=== PATIENT | female | born 1950 | race Caucasian/White ===

== ENCOUNTER 2016-05-07 22:33 | Emergency (ER) | payer MEDICARE ==
[2016-05-07 23:06] LABS: BASOPHIL 1.1 % (0-2); EOSINOPHIL 8.9 % (0-7); HCT 34.5 % (37.0-47.0); HGB 12.6 g/dl (12.5-16.0); LYMPHOCYTE 41.9 % (15-48); MCH 33.3 pg (25.0-31.0); MCHC 36.5 g/dL (32.0-36.0); MCV 91.3 fL (78.0-100.0); MONOCYTE 7.4 % (0-12); MPV 8.1 fL (6.0-9.5); NEUTROPHIL 40.7 % (41-80); PLT 356 K/uL (150-400); RBC 3.78 M/uL (4.20-5.40); RDW 12.5 % (11.5-14.0); WBC 7.6 K/uL (4.0-10.5)
[2016-05-07 23:17] LABS: INR 0.89 (0.9-1.2); PROTHROMBIN TIME 11.7 SECONDS (11.7-14.0); PTT 28.7 SECONDS (23.2-31.4)
[2016-05-07 23:24] LABS: ALBUMIN 4.5 g/dL (3.4-4.8); BILIRUBIN - TOTAL 0.4 mg/dL (0.1-1.0); CREATININE 0.8 mg/dL (0.5-1.0); GLOBULIN (CALCULATION) 2.2 g/dL (2.2-4.2); MAGNESIUM 2.11 mg/dL (1.40-2.10); POTASSIUM 3.8 mmol/L (3.5-5.1); TOTAL PROTEIN 6.7 g/dL (6.4-8.3)
[2016-05-07 23:26] LABS: CKMB 2.52 ng/mL (0.97-4.94); MYOGLOBIN 28 ng/mL (26-65); PRO-BNP 64 pg/mL (0-125); TROPONIN T < 0.010 ng/mL
[2016-10-18] MEDS ORDERED: METRONIDAZOLE500 MG PO (13:01)
[2016-10-18] MEDS ORDERED: PRAVACHOL80 MG PO (13:02)
[2016-10-18] MEDS ORDERED: KLONOPIN0.5 MG PO (13:02)
[2016-10-18] MEDS ORDERED: OMEPRAZOLE40 MG PO (13:02)
[2016-10-18] MEDS ORDERED: CYMBALTA60 MG PO (13:02)
[2016-10-18] MEDS ORDERED: SYNTHROID 0.1M0.1 MG PO (13:02)
[2016-10-18] MEDS ORDERED: ASPIRIN CHEWABL81 MG PO (13:03)
[2016-10-18] MEDS ORDERED: LAMICTAL150 MG PO (13:03)
[2016-10-18] MEDS ORDERED: SEROQUEL XR400 MG PO (13:03)
[2016-10-18] MEDS ORDERED: B COMPLEX1 EACH PO (13:04)
[2016-10-18] MEDS ORDERED: BRILINTA90 MG PO (13:04)
[2016-10-18] MEDS ORDERED: COENZYME Q10100 M1 PO (13:04)
[2016-10-18] MEDS ORDERED: CERTAGEN1 EACH PO (13:04)
[2016-10-18] MEDS ORDERED: L-METHYLFOLATE PO (13:05)
[2016-10-18] MEDS ORDERED: ABILIFY5 MG PO (13:06)
[2016-10-18] MEDS ORDERED: BIO D MULSION FORTE (13:06)
== END 2016-05-08 02:12 | disposition home or self-care (01) ==
LOC: FER 22:33
PROVIDERS: Emergency Medicine
DX: R07.89 Other chest pain (principal); R06.02 Shortness of breath; R11.0 Nausea; I10 Essential (primary) hypertension; Z88.0 Allergy status to penicillin; Z88.5 Allergy status to narcotic agent; Z88.8 Allergy status to other drugs, medicaments and biological substances; Z79.82 Long term (current) use of aspirin; Z79.899 Other long term (current) drug therapy; Z82.49 Family history of ischemic heart disease and other diseases of the circulatory system; Z98.890 Other specified postprocedural states
CPT/HCPCS: 36415; 71010; 80053; 82550; 82553; 83735; 83874; 83880; 84484; 85025; 85610; 85730; 93005; J2175; J2270; J2405

== ENCOUNTER 2020-02-28 15:38 | Inpatient (IN) | payer MEDICARE ==
[~2020-02-28 15:38] MED LIST: ABILIFY5 MG PO; ASPIRIN CHEWABL81 MG PO; ATROVENT (00.2 MG/ML INH; AVAPRO300 MG PO; B COMPLEX1 EACH PO; BIO D MULSION FORTE; BRILINTA60 MG PO; BRILINTA90 MG PO; CARDIZEM CD120 MG PO; CERTAGEN1 EACH PO; COENZYME Q10100 M1 PO; COQ-1030 MG PO; COREG12.5 MG PO; CRESTOR40 MG PO; CYMBALTA 30MG C30 MG PO; CYMBALTA60 MG PO; IMDUR 30MG TABL30 MG PO; ISOSORBIDE DINI10 MG PO; ISOSORBIDE MONO30 MG PO; KLONOPIN0.5 MG PO; KLONOPIN1 MG PO; L-METHYLFOLATE PO; L-METHYLFOLATE15 MG PO; LAMICTAL (BLUE)25 MG PO; LAMICTAL100 MG PO; LAMICTAL150 MG PO; MAG-OXIDE 400M400 MG PO; METRONIDAZOLE500 MG PO; NITROQUIK SL0.4 MG SL; OMEPRAZOLE40 MG PO; ONE-DAILY MULT1 EACH PO; PRAVACHOL80 MG PO; PRILOSEC20 MG PO; PRINIVIL20 MG PO; PROLIA60 MG/1 ML IJ; PROLIA60 MG/1 ML SC; REQUIP0.25 M1 PO; REQUIP0.25 MG PO; SEROQUEL 100MG100 MG PO; SEROQUEL XR400 MG PO; SERZONE100 MG PO; SYNTHROID 0.1M0.1 MG PO; SYNTHROID88 MCG PO; TOPROL XL 25MG25 MG PO; VENTOLIN (2.5 MG/3 M INH
[2020-02-28 17:18] LABS: BASOPHIL 0.7 % (0-2); EOSINOPHIL 1.5 % (0-7); HCT 33.1 % (37.0-47.0); HGB 11.5 g/dl (12.5-16.0); LYMPHOCYTE 16.6 % (15-48); MCH 32.6 pg (25.0-31.0); MCHC 34.7 g/dL (32.0-36.0); MCV 93.8 fL (78.0-100.0); MONOCYTE 6.7 % (0-12); MPV 8.3 fL (6.0-9.5); NEUTROPHIL 72.3 % (41-80); NRBC 0.6; PLT 418 K/uL (150-400); RBC 3.53 M/uL (4.20-5.40); RDW 13.7 % (11.5-14.0); WBC 10.7 K/uL (4.0-10.5)
[2020-02-28 17:23] LABS: INR 1.01 (0.9-1.2); PROTHROMBIN TIME 12.6 SECONDS (11.4-13.6)
[2020-02-28 17:25] LABS: D-DIMER 0.4 ug/mLFEU (0.00-0.41)
[2020-02-28 17:31] LABS: ALBUMIN 3.1 g/dL (3.4-5.0); BILIRUBIN - TOTAL 0.4 mg/dL (0.2-1.0); BUN/CREAT RATIO (CALC) 17.6 RATIO; CREATININE 0.68 mg/dL (0.51-0.95); GLOBULIN (CALCULATION) 4.2 g/dL; POTASSIUM 3.5 mmol/L (3.5-5.1); TOTAL PROTEIN 7.3 g/dL (6.4-8.2)
[2020-02-28 17:37] LABS: LACTIC ACID 1.4 mmol/L (0.4-1.9)
[2020-02-28] MEDS ORDERED: VITAMIN D3100 MCG PO (21:48)
[2020-02-28] MEDS ORDERED: NITROSTAT0.4 MG PO (21:49)
[2020-02-29 05:47] LABS: BASOPHIL 0.5 % (0-2); EOSINOPHIL 1.5 % (0-7); HCT 32.5 % (37.0-47.0); HGB 11.1 g/dl (12.5-16.0); MCH 32.6 pg (25.0-31.0); MCHC 34.2 g/dL (32.0-36.0); MCV 95.3 fL (78.0-100.0); MONOCYTE 9.9 % (0-12); MPV 8.2 fL (6.0-9.5); NEUTROPHIL 66.6 % (41-80); NRBC 0.6; PLT 412 K/uL (150-400); RBC 3.41 M/uL (4.20-5.40); RDW 13.8 % (11.5-14.0); WBC 12.4 K/uL (4.0-10.5)
[2020-02-29 06:11] LABS: ALBUMIN 2.8 g/dL (3.4-5.0); BILIRUBIN - TOTAL 0.3 mg/dL (0.2-1.0); BUN/CREAT RATIO (CALC) 17.1 RATIO; C-REACTIVE PROTEIN 4.8 mg/dL (<=0.90); CREATININE 0.82 mg/dL (0.51-0.95); GLOBULIN (CALCULATION) 4.8 g/dL; POTASSIUM 3.6 mmol/L (3.5-5.1); TOTAL PROTEIN 7.6 g/dL (6.4-8.2)
--- NOTE | 2020-02-29 13:24 | NUR ---
Patient triggered for nutrition assessment 2' BMI less than [address] screening found nursing error in assessment checked for low BMI. Patient ht'64", wt 184lb, BMI 31. patient currently on regular diet. No nutritional risks identified. Brit No RDLD
--- NOTE | 2020-02-29 17:09 | NUR ---
PT LIVES WITH BOYFRIEND; CURRENT WITH [facility]; HAS 3:1 ROLLING WALKER AND O2 AT HOME FROM LAST VISIT TO [facility]; PLEASE ADVISE OF ANY DISCHARGE NEEDS
--- NOTE | 2020-02-29 17:13 | NUR ---
02/29/2020 [facility] is current and were informed of patient's admission. Pt has 02, rw, and 3in1.
[2020-03-01 05:50] LABS: BASOPHIL 0.2 % (0-2); EOSINOPHIL 0 % (0-7); HCT 31.7 % (37.0-47.0); HGB 10.9 g/dl (12.5-16.0); LYMPHOCYTE 14.9 % (15-48); MCH 32.3 pg (25.0-31.0); MCHC 34.4 g/dL (32.0-36.0); MCV 94.1 fL (78.0-100.0); MPV 8.1 fL (6.0-9.5); NRBC 0.5; PLT 370 K/uL (150-400); RBC 3.37 M/uL (4.20-5.40); RDW 13.8 % (11.5-14.0); WBC 9.6 K/uL (4.0-10.5)
[2020-03-01 06:32] LABS: CREATININE 0.62 mg/dL (0.51-0.95); MAGNESIUM 2.2 mg/dL (1.8-2.4); PHOSPHORUS 2.6 mg/dL (2.6-4.7); POTASSIUM 3.5 mmol/L (3.5-5.1)
[2020-03-03] MEDS ORDERED: MEDROL 4MG DOSEP4 MG PO (13:43)
[2020-03-03] MEDS ORDERED: LEVAQUIN750 MG PO (13:43)
[2020-03-03] MEDS ORDERED: DUONEB 2.5-0.5M1 AMP NEB (13:56)
--- NOTE | 2020-03-03 14:23 | NUR ---
1420 IV DC'D. DISCHARGE ORDERS DISCUSSED WITH PT, SHE VERBALIZED UNDERSTANDING. PT TRANSPORTED TO HER OWN CAR WITH AND TECH IN A WHEELCHAIR. PT TOLERATED WELL, NO ISSUES AT THIS TIME.
== END 2020-03-03 14:15 | disposition home or self-care (01) | DRG 177 ==
LOC: FER 15:38 → FTCU 20:20
PROVIDERS: Emergency Medicine; Nurse Practitioner; ADMIT Internal Medicine
PROC: 8E0ZXY6 Isolation (ICD-10-PCS; principal; 2020-02-28)
DX: U07.1 COVID-19 (principal); J12.89 Other viral pneumonia; J96.01 Acute respiratory failure with hypoxia; J44.1 Chronic obstructive pulmonary disease with (acute) exacerbation; J44.0 Chronic obstructive pulmonary disease with (acute) lower respiratory infection; R49.0 Dysphonia; Z95.5 Presence of coronary angioplasty implant and graft; F31.9 Bipolar disorder, unspecified; I50.9 Heart failure, unspecified; I11.0 Hypertensive heart disease with heart failure; I25.10 Atherosclerotic heart disease of native coronary artery without angina pectoris; G47.33 Obstructive sleep apnea (adult) (pediatric); K21.9 Gastro-esophageal reflux disease without esophagitis; E03.9 Hypothyroidism, unspecified; Z86.73 Personal history of transient ischemic attack (TIA), and cerebral infarction without residual deficits; Z88.0 Allergy status to penicillin; Z95.1 Presence of aortocoronary bypass graft; Z90.49 Acquired absence of other specified parts of digestive tract; Z87.891 Personal history of nicotine dependence; Z88.8 Allergy status to other drugs, medicaments and biological substances
CPT/HCPCS: 36415; 36600; 71045; 71275; 80048; 80053; 80202; 82728; 82803; 83605; 83735; 83880; 84100; 84145; 84484; 85025; 85379; 85610; 86140; 87040; 93005; 94640; 94762; 97110; 97162; 97165; 97530; 97530-GP; J1885; J1956; J2930; J3370; J3480; J7050; Q9967; U0002

== ENCOUNTER 2021-01-21 11:58 | Emergency (ER) | payer MEDICARE ==
[~2021-01-21 11:58] MED LIST changes: +DUONEB 2.5-0.5M1 AMP NEB; +LEVAQUIN750 MG PO; +MEDROL 4MG DOSEP4 MG PO; +NITROSTAT0.4 MG PO; +VITAMIN D3100 MCG PO
[2021-01-21 12:32] LABS: BASOPHIL 0.8 % (0-2); HCT 32.2 % (37.0-47.0); HGB 11.4 g/dl (12.5-16.0); LYMPHOCYTE 31.9 % (15-48); MCH 33.3 pg (25.0-31.0); MCHC 35.4 g/dL (32.0-36.0); MCV 94.2 fL (78.0-100.0); MONOCYTE 4.7 % (0-12); MPV 8.4 fL (6.0-9.5); NEUTROPHIL 55.2 % (41-80); NRBC 0; PLT 274 K/uL (150-400); RBC 3.42 M/uL (4.20-5.40); RDW 12.2 % (11.5-14.0); WBC 9.2 K/uL (4.0-10.5)
[2021-01-21 12:51] LABS: ALBUMIN 3.9 g/dL (3.4-5.0); BILIRUBIN - TOTAL 0.4 mg/dL (0.2-1.0); BUN/CREAT RATIO (CALC) 17.7 RATIO; CREATININE 0.62 mg/dL (0.51-0.95); GLOBULIN (CALCULATION) 2.8 g/dL; POTASSIUM 4.4 mmol/L (3.5-5.1); TOTAL PROTEIN 6.7 g/dL (6.4-8.2)
[2021-01-21 13:15] LABS: BILIRUBIN NEGATIVE (NEGATIVE); BLOOD NEGATIVE Ery/uL (NEGATIVE); CLARITY CLEAR (CLEAR); COLOR YELLOW (YELLOW); GLUCOSE (U) NORMAL (NORMAL); LEUKOCYTES NEGATIVE Leu/uL (NEGATIVE); NITRITE NEGATIVE (NEGATIVE); PROTEIN NEGATIVE (NEGATIVE); SPECIFIC GRAVITY <=1.005 (1.001-1.030); UROBILINOGEN 0.2 mg/dL (0.2-1.0)
[2021-01-21] MEDS ORDERED: ANTIVERT25 MG PO (16:40)
== END 2021-01-21 16:55 | disposition home or self-care (01) ==
LOC: FER 11:58
PROVIDERS: Emergency Medicine
DX: D64.9 Anemia, unspecified (principal); E87.1 Hypo-osmolality and hyponatremia; I25.10 Atherosclerotic heart disease of native coronary artery without angina pectoris; I10 Essential (primary) hypertension; J44.9 Chronic obstructive pulmonary disease, unspecified; Z88.0 Allergy status to penicillin
CPT/HCPCS: 36415; 70450; 70486; 71250; 80053; 81003; 84484; 85025; 93005; J7030

== ENCOUNTER 2021-06-12 09:34 | Emergency (ER) | payer MEDICARE ==
[~2021-06-12 09:34] MED LIST changes: +ANTIVERT25 MG PO
[2021-06-12 10:40] LABS: BASOPHIL 0.9 % (0-2); EOSINOPHIL 6.2 % (0-7); HCT 33.7 % (37.0-47.0); HGB 11.8 g/dl (12.5-16.0); LYMPHOCYTE 27.5 % (15-48); MCV 97.1 fL (78.0-100.0); MONOCYTE 6.7 % (0-12); MPV 8.2 fL (6.0-9.5); NEUTROPHIL 58.3 % (41-80); NRBC 0; PLT 236 K/uL (150-400); RBC 3.47 M/uL (4.20-5.40); WBC 9.2 K/uL (4.0-10.5)
[2021-06-12 10:49] LABS: ALBUMIN 3.9 g/dL (3.4-5.0); BILIRUBIN - TOTAL 0.6 mg/dL (0.2-1.0); BUN/CREAT RATIO (CALC) 10.1 RATIO; CREATININE 0.69 mg/dL (0.51-0.95); GLOBULIN (CALCULATION) 3.3 g/dL; POTASSIUM 3.5 mmol/L (3.5-5.1); TOTAL PROTEIN 7.2 g/dL (6.4-8.2)
[2021-06-12] MEDS ORDERED: VIBRAMYCIN100 MG PO (12:55)
== END 2021-06-12 13:24 | disposition home or self-care (01) ==
LOC: FER 09:34
PROVIDERS: Emergency Medicine
DX: J18.9 Pneumonia, unspecified organism (principal); I10 Essential (primary) hypertension; J44.9 Chronic obstructive pulmonary disease, unspecified; Z88.0 Allergy status to penicillin; Z87.891 Personal history of nicotine dependence; Z28.311 Partially vaccinated for COVID-19
CPT/HCPCS: 36415; 36600; 71045; 80053; 82803; 83880; 84484; 85025; 85379; 94760

== ENCOUNTER 2021-10-03 19:15 | Emergency (ER) | payer MEDICARE ==
[~2021-10-03 19:15] MED LIST changes: +VIBRAMYCIN100 MG PO
[2021-10-03 20:16] LABS: BASOPHIL 1.1 % (0-2); EOSINOPHIL 5.8 % (0-7); HCT 31.5 % (37.0-47.0); HGB 11.5 g/dl (12.5-16.0); LYMPHOCYTE 36.5 % (15-48); MCH 33.7 pg (25.0-31.0); MCHC 36.5 g/dL (32.0-36.0); MCV 92.4 fL (78.0-100.0); MONOCYTE 9.1 % (0-12); MPV 8.1 fL (6.0-9.5); NEUTROPHIL 46.9 % (41-80); NRBC 0; PLT 215 K/uL (150-400); RBC 3.41 M/uL (4.20-5.40); RDW 12.3 % (11.5-14.0); WBC 8.8 K/uL (4.0-10.5)
[2021-10-03 20:25] LABS: INR 0.97 (0.9-1.2); PROTHROMBIN TIME 12.6 SECONDS (11.9-13.9)
[2021-10-03 20:26] LABS: PTT 29.1 SECONDS (24.9-34.6)
[2021-10-03 20:42] LABS: ALBUMIN 3.9 g/dL (3.4-5.0); BILIRUBIN - TOTAL 0.6 mg/dL (0.2-1.0); BUN/CREAT RATIO (CALC) 18.2 RATIO; CREATININE 0.66 mg/dL (0.51-0.95); FT4 (FREE T4) 0.8 ng/dL (0.76-1.46); GLOBULIN (CALCULATION) 2.5 g/dL; POTASSIUM 3.4 mmol/L (3.5-5.1); TOTAL PROTEIN 6.4 g/dL (6.4-8.2)
[2021-10-03 21:59] LABS: CORONAVIRUS 2019 SARS-COV-2 NEGATIVE (NEGATIVE); INFLUENZA A NAA NEGATIVE (NEGATIVE)
== END 2021-10-04 00:10 | disposition home or self-care (01) ==
LOC: FER 19:15
PROVIDERS: Internal Medicine
DX: R07.89 Other chest pain (principal); E87.1 Hypo-osmolality and hyponatremia; E03.9 Hypothyroidism, unspecified; I10 Essential (primary) hypertension; Z88.0 Allergy status to penicillin; Z20.822 Contact with and (suspected) exposure to COVID-19
CPT/HCPCS: 36415; 71045; 80053; 83880; 84439; 84443; 84484; 85025; 85610; 85730; 93005; J2270; J2405; J3475; J7030; U0002